=== PATIENT | female | born 1985 | race American Indian/Alaskan Native ===

== ENCOUNTER 2018-09-20 02:13 | Emergency (ER) | payer OTHER ==
[2018-09-20 02:26] VITALS: TEMP 98.7; O2SAT 100
[2018-09-20] MEDS ORDERED: Lidocaine 5% Patch TD STA (02:56)
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
[2018-09-20 03:55] VITALS: BP 116/79; PULSE 72; RESP 14
== END 2018-09-20 03:55 | disposition home or self-care (01) ==
LOC: ED 02:13 → MERGE 02:13 → ED 03:55
DX: S39.012A Strain of muscle, fascia and tendon of lower back, initial encounter (principal); V49.49XA Driver injured in collision with other motor vehicles in traffic accident, initial encounter; Y92.410 Unspecified street and highway as the place of occurrence of the external cause